=== PATIENT | female | born 1980 | race Caucasian/White ===

== ENCOUNTER → 2021-03-06 | Outpatient (CLI) | payer BC ==
[~2021-03-06] MED LIST: IBU800 MG PO; MANNOSE50 GM PO; NITR100CA PO; PROBIOTIC PO; Percocet 5-3251 EACH PO
== END ==
LOC: LAB SHORT 08:02
DX: D48.5 Neoplasm of uncertain behavior of skin (principal); L82.1 Other seborrheic keratosis; Z88.0 Allergy status to penicillin
CPT/HCPCS: 88305